=== PATIENT | female | born 2000 | race African-American/Black ===

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

== ENCOUNTER 2024-11-28 16:16 | Emergency (ER) | payer BC, OTHER ==
[2024-11-28 16:39] VITALS: BP 123/85; PULSE 83; RESP 18; TEMP 98.6; BMI 28.1
[2024-11-28] MEDS ORDERED: RABIES VACCINE (PCEC)/PF 2.5 UNIT/VIAL IM ONE (17:21)
[2024-11-28] MEDS: RABIES VACCINE (PCEC)/PF 2.5 UNIT/VIAL IM ONE (17:28)
== END 2024-11-28 17:33 | disposition home or self-care (01) ==
LOC: JERFT 16:16
PROC: 3E0234Z Introduction of Serum, Toxoid and Vaccine into Muscle, Percutaneous Approach (ICD-10-PCS; principal; 2024-11-28)
DX: Z29.14 Encounter for prophylactic rabies immune globulin (principal)
CPT/HCPCS: 90675; 99281-25

== ENCOUNTER 2024-12-05 12:32 | Emergency (ER) | payer BC, OTHER ==
[2024-12-05 12:45] VITALS: BP 130/81; PULSE 99; RESP 18; TEMP 98.8; BMI 28.1
[2024-12-05] MEDS ORDERED: RABIES VACCINE (PCEC)/PF 2.5 UNIT/VIAL IM ONE (13:26)
[2024-12-05] MEDS: RABIES VACCINE (PCEC)/PF 2.5 UNIT/VIAL IM ONE (13:36)
== END 2024-12-05 14:03 | disposition home or self-care (01) ==
LOC: JER 12:32 → JERFT 12:32
PROC: 3E0234Z Introduction of Serum, Toxoid and Vaccine into Muscle, Percutaneous Approach (ICD-10-PCS; principal; 2024-12-05)
DX: Z29.14 Encounter for prophylactic rabies immune globulin (principal)
CPT/HCPCS: 90675; 99284-25